=== PATIENT | female | born 1935 | race Caucasian/White ===

== ENCOUNTER 2018-03-25 09:03 | Inpatient (IN) | payer OTHER ==
[~2018-03-25] VITALS: Ht 152.4 cm; Wt 72.6 kg
[2018-03-25] MEDS ORDERED: GRALISE600 MG (09:41)
[2018-03-25] MEDS ORDERED: OMEPRAZOLE20 M1 (09:42)
[2018-03-25] MEDS ORDERED: PANADOL EXTRA500 MG (09:42)
[2018-03-25] MEDS ORDERED: ZESTRIL40 M1 (09:42)
[2018-03-25] MEDS ORDERED: CORGARD80 M1 (09:42)
[2018-03-25] MEDS ORDERED: LIPITOR20 MG (09:43)
--- NOTE | 2018-03-25 09:46 | NUR ---
SE RECIBE PTE ALERTA Y ORIENTADA X3 LA CUAL REFIERE VENIR POR DOLOR DE ESPALDA Y PARALISIS EN LADO AGUS DEL CUERPO. 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 SE MIDEN S/V APTE Y SE COLOCA EN DELMI DE ESPERA.
--- NOTE | 2018-03-25 10:34 | NUR ---
SE SHARYN MUESTRAS Y SE LLEVA PACIENTE A XRAYS, SE CONTINUA MONITOREANDO POR CAMBIOS.
--- NOTE | 2018-03-25 14:48 | NUR ---
POR ORDEN DE DR. BAIRD SE COLOCA EN [place] DEBIDO A CONSULTA CON MEDICINA INTERNA, SE ORIENTA A PACIENTE Y FAMILIAR LO CUAL AMBOS REFIEREN PREF[facility]IR [facility]. SE CONITNUA MONITOREANDO POR CAMBIOS.
[2018-03-27] MEDS ORDERED: CLOPIDOGREL BIS75 MG PO (08:59)
== END 2018-03-27 10:23 | disposition home or self-care (01) | DRG 56 ==
LOC: ER 09:03 → MEDJ 19:45
PROVIDERS: ADMIT Internal Medicine
PROC: BH4CZZZ Ultrasonography of Head and Neck (ICD-10-PCS; principal; 2018-03-25)
PROC: BW38ZZZ Magnetic Resonance Imaging (MRI) of Head (ICD-10-PCS; 2018-03-25)
PROC: B246ZZZ Ultrasonography of Right and Left Heart (ICD-10-PCS; 2018-03-25)
PROC: B345ZZZ Ultrasonography of Bilateral Common Carotid Arteries (ICD-10-PCS; 2018-03-25)
PROC: 4A12X4Z Monitoring of Cardiac Electrical Activity, External Approach (ICD-10-PCS; 2018-03-25)
DX: G81.94 Hemiplegia, unspecified affecting left nondominant side (principal); I63.032 Cerebral infarction due to thrombosis of left carotid artery; I67.82 Cerebral ischemia; F05 Delirium due to known physiological condition; R29.701 NIHSS score 1
CPT/HCPCS: 70544

== ENCOUNTER 2018-12-08 09:59 | Emergency (ER) | payer OTHER ==
[~2018-12-08] VITALS: Ht 152.4 cm; Wt 59.0 kg
[~2018-12-08 09:59] MED LIST: CLOPIDOGREL BIS75 MG PO; CORGARD80 M1; GRALISE600 MG; LIPITOR20 MG; OMEPRAZOLE20 M1; PANADOL EXTRA500 MG; ZESTRIL40 M1
[2018-12-08] MEDS ORDERED: NORVASC5 MG (10:19)
[2018-12-08] MEDS ORDERED: COZAAR100 MG (10:19)
[2018-12-08] MEDS ORDERED: ARICEPT10 MG (10:19)
[2018-12-08] MEDS ORDERED: CLONAZEPAM0.5 MG (10:20)
== END 2018-12-08 11:59 | disposition home or self-care (01) ==
LOC: ER 09:59
DX: M25.551 Pain in right hip (principal)

== ENCOUNTER 2019-01-23 08:23 | Emergency (ER) | payer OTHER ==
[~2019-01-23] VITALS: Ht 154.9 cm; Wt 59.0 kg
[~2019-01-23 08:23] MED LIST changes: +ARICEPT10 MG; +CLONAZEPAM0.5 MG; +COZAAR100 MG; +NORVASC5 MG
== END 2019-01-23 09:05 | disposition home or self-care (01) ==
LOC: ER 08:23
DX: M25.551 Pain in right hip (principal)

== ENCOUNTER 2020-03-10 15:15 | Emergency (ER) | payer OTHER ==
[~2020-03-10] VITALS: Ht 154.9 cm; Wt 58.1 kg
[2020-03-10] MEDS ORDERED: LOSARTAN POTAS100 MG PO (15:55)
[2020-03-10] MEDS ORDERED: GABAPENTIN300 M2 PO (15:55)
[2020-03-10] MEDS ORDERED: OMEPRAZOLE20 MG PO (15:55)
[2020-03-10] MEDS ORDERED: ATORVASTATIN CA20 MG PO (15:55)
[2020-03-10] MEDS ORDERED: AMLODIPINE BESYL5 MG PO (15:55)
[2020-03-10] MEDS ORDERED: DONEPEZIL HCL10 MG PO (15:56)
== END 2020-03-10 18:59 | disposition home or self-care (01) ==
LOC: ER 15:15
DX: R53.1 Weakness (principal)

== ENCOUNTER 2022-09-27 17:34 | Emergency (ER) | payer OTHER ==
[~2022-09-27] VITALS: Ht 162.6 cm; Wt 49.4 kg
[~2022-09-27 17:34] MED LIST changes: +AMLODIPINE BESYL5 MG PO; +ATORVASTATIN CA20 MG PO; +DONEPEZIL HCL10 MG PO; +GABAPENTIN300 M2 PO; +LOSARTAN POTAS100 MG PO; +OMEPRAZOLE20 MG PO
== END 2022-09-27 19:44 | disposition home or self-care (01) ==
LOC: ER 17:34
DX: S05.11XA Contusion of eyeball and orbital tissues, right eye, initial encounter (principal); W18.39XA Other fall on same level, initial encounter; Y93.89 Activity, other specified; Y92.012 Bathroom of single-family (private) house as the place of occurrence of the external cause; Y99.9 Unspecified external cause status